=== PATIENT | female | born 1960 | race Caucasian/White ===

== ENCOUNTER → 2020-06-16 | Day surgery (SDC) | payer OTHER ==
[~2020-06-16] MED LIST: ASPIRIN CHEWABL81 MG PO; ERTAPENEM1 GM IV; FLONASE ALLER15.8 ML; HEPARIN 3010 UNIT/1 IV; HYZAAR 100-251 EACH PO; METFORMIN HCL500 MG PO; METRONIDAZOLE500 MG PO; NORVASC5 MG PO; PROZAC20 M1 PO
== END | disposition home or self-care (01) ==
LOC: FAS 07:45
DX: K57.20 Diverticulitis of large intestine with perforation and abscess without bleeding (principal); K64.8 Other hemorrhoids; K63.89 Other specified diseases of intestine; E11.9 Type 2 diabetes mellitus without complications; F17.200 Nicotine dependence, unspecified, uncomplicated; I25.10 Atherosclerotic heart disease of native coronary artery without angina pectoris; I25.84 Coronary atherosclerosis due to calcified coronary lesion; I10 Essential (primary) hypertension; M85.80 Other specified disorders of bone density and structure, unspecified site; Z79.82 Long term (current) use of aspirin; Z79.84 Long term (current) use of oral hypoglycemic drugs; Z79.899 Other long term (current) drug therapy
CPT/HCPCS: 74270; 82962; J7120